=== PATIENT | male | born 1960 | race Caucasian/White ===

== ENCOUNTER → 2021-01-20 | Day surgery (SDC) | payer OTHER ==
[~2021-01-20] VITALS: Ht 170.2 cm; Wt 99.8 kg
[~2021-01-20] MED LIST: ONE-DAILY MULT1 EACH PO; PREDNISONE PO; SPIRIVA18 MCG INH; SYMBICORT 80-10.2 GM INH; TRAZODONE HCL150 MG PO; VIAGRA25 MG PO; VOLTAREN **OUT50 MG PO; WELLBUTRIN XL300 MG PO
[2021-01-20 09:51] LABS: HCT 50.2 % (42.0-52.0); HGB 17.1 g/dl (13.2-18.0); MCH 33.1 pg (25.0-31.0); MCHC 34.1 g/dL (32.0-36.0); MCV 97.1 fL (78.0-100.0); MPV 10.4 fL (6.0-9.5); RBC 5.17 M/uL (4.70-6.00); RDW 13.3 % (11.5-14.0); WBC 7.9 K/uL (4.0-10.5)
[2021-01-20 10:13] LABS: ALBUMIN 3.4 g/dL (3.4-5.0); BILIRUBIN - TOTAL 0.8 mg/dL (0.2-1.0); BUN/CREAT RATIO (CALC) 20.5 RATIO; CREATININE 0.83 mg/dL (0.67-1.17); GLOBULIN (CALCULATION) 3.6 g/dL
== END | disposition home or self-care (01) ==
LOC: FAS 09:10
PROVIDERS: Surgery
DX: R19.7 Diarrhea, unspecified (principal); J44.9 Chronic obstructive pulmonary disease, unspecified; F17.210 Nicotine dependence, cigarettes, uncomplicated; Z88.2 Allergy status to sulfonamides; Z88.1 Allergy status to other antibiotic agents
CPT/HCPCS: 36415; 80053; J2250; J2704; J7120